=== PATIENT | male | born 1965 | race Native Hawaiian/Other Pacific Islander ===

== ENCOUNTER 2018-02-06 08:04 | Day surgery (SDC) | payer BC ==
[2018-02-06] MEDS ORDERED: MIDAZOLAM HCL 2MG/2ML VIAL IV ONE (08:05)
[2018-02-06] MEDS ORDERED: LIDOCAINE 2% MDV (20MG/ML) 20ML VIAL IV ONE (08:05)
[2018-02-06] MEDS ORDERED: PROPOFOL 10 MG/ML VIAL IV ONE (08:05)
--- NOTE | 2018-02-08 10:50 | Operative Note ---
DATE OF SERVICE: 02/06/2018. DATE OF SURGERY: 02/06/2018. OPERATION: COLONOSCOPY to the cecum with multiple biopsies. Indication: History of ulcerative colitis. The patient presents at this time for surveillance examination. He denies current complaints. His last colonoscopy was 2 years ago. Anesthesia: Intravenous sedation was administered by the Department of Anesthesiology and included Diprivan titrated to effect. PROCEDURE: Following informed consent from this alert individual, including a discussion of the risks and benefits of the procedure and opportunity for the patient to ask questions, with patient in left lateral decubitus position, digital rectal examination was performed. No abnormalities were noted. Following this, the Olympus PCF-190 video colonoscope was inserted in the rectum without resistance. Rectal mucosa had a normal appearance with normal folds and distensibility. Colonoscope was advanced up to the colon to the level of the cecum without much difficulty. Throughout the bowel, the mucosa appeared normal. Folds were normal. The bowel was fairly distensible. Cecum was defined by noting the appendiceal orifice and the ileocecal valve. The colon preparation was good. From the cecum, the colonoscope was then slowly withdrawn. Random biopsies were taken from throughout the right colon and left colon upon withdrawal. There was suggestion of a diminutive polyp noted in the distal rectum, and this was removed with biopsy forceps. Retroflexion was otherwise unremarkable in the rectum. The endoscope was straightened and withdrawn. The patient tolerated the procedure well and returned to the recovery area in stable condition. IMPRESSION: 1. Ulcerative colitis in remission clinically and endoscopically. Multiple biopsies taken from the right and left colon. 2. Diminutive rectal polyp removed with biopsy forceps. RECOMMENDATIONS: Further recommendations will be forthcoming pending results of pathology obtained today. The patient will continue on his current medical regimen. Followup with be with Dr. Dread Martin, as well. CC: Wali Shine, DO Dread Martin, DO [place]
== END 2018-02-06 09:58 | disposition home or self-care (01) ==
LOC: HOP 08:04
PROVIDERS: ATTEND Internal Medicine Gastroenterology
DX: Z12.11 Encounter for screening for malignant neoplasm of colon (principal); Z87.19 Personal history of other diseases of the digestive system; K62.1 Rectal polyp; K52.9 Noninfective gastroenteritis and colitis, unspecified